=== PATIENT | female | born 1980 | race Caucasian/White ===

== ENCOUNTER 2019-05-01 18:32 | Emergency (ER) | payer OTHER | END 2019-05-01 19:50 | disposition home or self-care (01) | LOC: SED 18:32 | DX: S09.90XA Unspecified injury of head, initial encounter (principal); R11.0 Nausea; W51.XXXA Accidental striking against or bumped into by another person, initial encounter; Y93.89 Activity, other specified; Y92.89 Other specified places as the place of occurrence of the external cause; Y99.8 Other external cause status | CPT/HCPCS: 99282 ==